=== PATIENT | female | born 1995 | race Caucasian/White ===

== ENCOUNTER 2017-07-16 17:31 | Emergency (ER) | payer OTHER ==
[~2017-07-16] VITALS: Ht 170.2 cm; Wt 117.0 kg
[2017-07-16 17:35] VITALS: TEMP 37.3; Ht 170.2 cm; Wt 117.0 kg
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
[2017-07-16] MEDS ORDERED: ETON1IMP2 INTRAD (18:22)
[2017-07-16 19:35] LABS: ISTAT CREATININE 0.7 mg/dl; ISTAT IONIZED CALCIUM 1.16 mmol/l; ISTAT POTASSIUM 3.7 mEq/L (3.3-5.0)
[2017-07-16 19:55] VITALS: BP 114/62; PULSE 88; O2SAT 99
[2017-07-16] MEDS ORDERED: BACITRACIN OINT 15 GM TUBE EXT ONE (20:15)
== END 2017-07-16 20:21 | disposition home or self-care (01) ==
LOC: C.EDA 17:35 → EDBD 17:35 → C.EDA 20:21
DX: S39.81XA Other specified injuries of abdomen, initial encounter (principal); S29.8XXA Other specified injuries of thorax, initial encounter; V43.52XA Car driver injured in collision with other type car in traffic accident, initial encounter; Y93.89 Activity, other specified; Y99.8 Other external cause status; Y92.410 Unspecified street and highway as the place of occurrence of the external cause